=== PATIENT | female | born 1985 | race Caucasian/White ===

== ENCOUNTER 2022-05-03 15:19 | Emergency (ER) | payer SELFPAY ==
[~2022-05-03] VITALS: Ht 160 cm; Wt 93.0 kg
[2022-05-03 15:32] VITALS: BP 110/73
[2022-05-03] MEDS ORDERED: ONDANSETRON HCL 4MG/2ML INJ IV STA (16:43)
[2022-05-03] MEDS ORDERED: ACETAMINOPHEN 325MG TABLET PO STA (16:43)
[2022-05-03] MEDS ORDERED: SODIUM CHLORIDE 0.9% 1,000 ML IV ONE (16:45)
[2022-05-03] MEDS ORDERED: VISCOUS LIDOCAINE 2% 15 ML UDC MM ONE (17:00)
[2022-05-03] MEDS ORDERED: MAGNESIUM/ALUMINUM HYDROXIDE/SIMETHICONE 30ML UDC PO ONE (17:00)
[2022-05-03 17:08] LABS: CLARITY URINE CLEAR (CLEAR); COLOR URINE YELLOW (YELLOW); KETONES URINE NEGATIVE (NEGATIVE); LEUKOCYTE ESTERASE URINE 1+ (NEGATIVE); NITRITE URINE POSITIVE (NEGATIVE); OCCULT BLOOD URINE TRACE (NEGATIVE); PH URINE 6.5 (4.5-8.0); PROTEIN URINE NEGATIVE (NEGATIVE); SPECIFIC GRAVITY URINE 1.016 (1.005-1.030)
[2022-05-03] MEDS ORDERED: PANTOPRAZOLE SODIUM 40 MG/VIAL IV SCH (17:15)
[2022-05-03 17:27] LABS: *AMPHETAMINES SCREEN URINE NEGATIVE (NEGATIVE); *BARBITURATES SCREEN URINE NEGATIVE (NEGATIVE); *BENZODIAZEPINES SCREEN URINE NEGATIVE (NEGATIVE); *COCAINE SCREEN URINE NEGATIVE (NEGATIVE); CANNABINOID URINE SCREEN NEGATIVE (NEGATIVE); METHADONE URINE SCREEN NEGATIVE (NEGATIVE); OPIATES URINE SCREEN NEGATIVE (NEGATIVE); PHENCYCLIDINE URINE SCREEN NEGATIVE (NEGATIVE)
[2022-05-03 17:55] LABS: BASOPHILS % 0.2 % (0.0-2.0); EOSINOPHILS % 0.1 % (0.0-5.0); HEMATOCRIT. 38.9 % (36.0-48.0); HEMOGLOBIN. 12.8 g/dL (12.0-16.0); LYMPHOCYTES % 9.2 % (20.0-50.0); MEAN CORPUSCULAR HEMOGLOBIN 29.4 pg (28.0-32.0); MEAN PLATELET VOLUME 6.9 fl (7.4-10.4); MONOCYTES % 4.9 % (2.0-8.0); NEUTROPHILS % 85.6 % (40.0-76.0); PLATELET 330 x1000/uL (130-400); RED BLOOD CELL COUNT 4.37 mill/uL (4.2-5.4); RED CELL DISTRIBUTION WIDTH 14.2 % (11.6-14.6)
[2022-05-03 18:12] LABS: CHLORIDE 106 mEq/L (98-107)
[2022-05-03 18:13] LABS: HCG SCREEN NEGATIVE
[2022-05-03] MEDS ORDERED: CEPHALEXIN 250MG CAPSULE PO NR (18:15)
[2022-05-03 18:20] LABS: ETHANOL BLOOD < 10 mg/dL
[2022-05-03] MEDS ORDERED: PROT40 MT ×2 (18:45→19:05)
[2022-05-03] MEDS ORDERED: ONDA4TAB50 MT ×2 (18:45→19:05)
[2022-05-03] MEDS ORDERED: CEPH500C2 MT (19:05)
== END 2022-05-03 19:16 | disposition home or self-care (01) ==
LOC: ER 15:19
DX: R10.13 Epigastric pain (principal); R11.2 Nausea with vomiting, unspecified; N39.0 Urinary tract infection, site not specified; Z79.899 Other long term (current) drug therapy
CPT/HCPCS: 36415; 76705; 80053; 80305; 80320; 81003; 81025; 83690; 84703; 85025; 96361; 96374; 96375; 99284; C9113; J2405; J7030; G0480